=== PATIENT | female | born 1980 | race African-American/Black ===

== ENCOUNTER 2022-03-02 13:28 | Inpatient (IN) | payer MEDICAID, OTHER ==
[~2022-03-02] VITALS: Ht 170.2 cm; Wt 57.6 kg
[2022-03-02 13:38] VITALS: BP 145/99
[2022-03-02] MEDS ORDERED: KETOROLAC 30 MG/ML VIAL IM ONE (15:25)
[2022-03-02 16:43] LABS: BASOPHILS % (AUTO) 0.2 % (0.0-2.0); EOSINOPHILS # (AUTO) 0.1 K/uL (0-0.4); EOSINOPHILS % (AUTO) 0.7 % (0.0-4.0); HEMATOCRIT 38.3 % (36-48); HEMOGLOBIN 12.4 g/dL (12.0-16.0); LYMPHOCYTES # (AUTO) 1.3 K/uL (2.5-16.5); LYMPHOCYTES % (AUTO) 8.5 % (20.5-51.1); MEAN CORPUSCULAR HEMOGLOBIN 30 pg (27-31); MEAN CORPUSCULAR HGB CONC 32 g/dL (33-37); MEAN CORPUSCULAR VOLUME 92.7 fL (80-94); MONOCYTES % (AUTO) 6.6 % (1.7-9.3); NEUTROPHILS # (AUTO) 12.5 K/uL (1.8-7.7); PLATELET COUNT (AUTO) 248 K/uL (140-450); RED BLOOD CELL COUNT(AUTO) 4.13 MIL/uL (4.20-5.40); RED CELL DISTRIBUTION WIDTH 19.7 % (11.6-13.7); WHITE BLOOD COUNT (AUTO) 14.9 K/uL (4.8-10.8)
[2022-03-02 16:52] LABS: ALBUMIN 2.8 g/dL (3.4-5.0); ANION GAP 15.9 (8-16); ASPARTATE AMINOTRANSFERASE 108 U/L (15-37); CARBON DIOXIDE 25.8 mmol/L (21-32); CHLORIDE 99 mmol/L (98-107); CREATININE 0.8 mg/dL (0.6-1.3); GFR ARICAN-AMERICAN 101 mL/min (>90); GLUCOSE 155 mg/dL (74-106); LIPASE 879 U/L (73-393); SODIUM SERUM 138 mmol/L (136-145); TOTAL BILIRUBIN 0.4 mg/dL (0.0-1.0); UREA NITROGEN, BLOOD 7 mg/dL (7-18)
[2022-03-02 16:55] LABS: POTASSIUM 2.7 mmol/L (3.5-5.1)
--- NOTE | 2022-03-02 16:59 | NUR ---
PT AMBULATED TO ER BED 2
--- NOTE | 2022-03-02 17:25 | NUR ---
Mylene saucedo in [facility] - 03/02/22 at 1818 by NEELIMA PATIENT TO CT
[2022-03-02] MEDS ORDERED: POTASSIUM CHLORIDE 10 MEQ TABER PO ONE (17:50)
[2022-03-02] MEDS ORDERED: MORPHINE SULFATE 4 MG/ML SYR IVP ONE (17:50)
[2022-03-02] MEDS ORDERED: KCL 20 MEQ/WATER INJ PREMIX 200 ML IV PRN (17:50)
[2022-03-02] MEDS ORDERED: ONDANSETRON 4 MG/2 ML VIAL IVP PRN (17:50)
[2022-03-02] MEDS ORDERED: MAGNESIUM OXIDE 400 MG TAB PO PRN (17:50)
[2022-03-02] MEDS ORDERED: ACETAMINOPHEN 325 MG TAB PO PRN (17:50)
[2022-03-02] MEDS: NACL 0.9% 1,000 ML IV SCH (18:16)
--- NOTE | 2022-03-02 18:18 | NUR ---
LAB AT BEDSIDE. ADMIT ORDERS NOW TO TELE. PT ON BEDSIDE MONITOR
--- NOTE | 2022-03-02 18:42 | NUR ---
42YR OLD FEMALE BIB SELF. C/O ABD PAIN AND CP X1 DAY. PT PAIN LEVEL 7/10 DENIES SOB. STATES NAUSEA VOMITING AND DIARRHEA. PT STATES THIS IS THE SECOND OCCURANCE FROM A FEW MONTHS AGO. ADMITS TO DRINKING A PINT OF WHISKEY A DAY. PT IS BEING ADMITTED TO [facility] FOR PANCREATITIS. PT IS A&OX4 AND UP AT ZARI. NKDA NO MED HX
[2022-03-02] MEDS ORDERED: CALC500C17 PO (18:51)
--- NOTE | 2022-03-02 21:05 | NUR ---
PT RESTING IN BED. GAVE 2100 MEDS. PT ASKED FOR FOOD. INFORMED HER THAT SHE IS NPO. ALL NEEDS MEET AT THIS TIME.
[2022-03-02] MEDS: MORPHINE SULFATE 4 MG/ML SYR IVP PRN (23:17)
--- NOTE | 2022-03-02 23:20 | NUR ---
PT RESTING IN BED. GAVE MEDS FOR PAIN. ALL NEEDS MEET AT THIS TIME.
--- NOTE | 2022-03-03 03:18 | NUR ---
Patient will be admitted to care of DR. GAMBOA. Admited to [facility]. Will go to room 104 A. Belongings list completed. Report to VENANCIO VEGA.
[2022-03-03 04:02] VITALS: BP 134/88
--- NOTE | 2022-03-03 04:16 | NUR ---
42/F [facility] ED WITH CHIEF COMPLAINT OF ABD PAIN ASSOCIATED WITH N/V/D; DX IS ACUTE PANCREATITIS. A&OX4, VERBALLY RESPONSIVE AND ABLE TO COMMUNICATE NEEDS. VSS. HEAD TO TOE ASSESSMENT COMPLETED WITH CHARGE NURSE CONNIE. PER PT, ONSET OF CC STARTED ON 02/28/22 AND PT STATES SHE DID NOT TAKE ANYTHING TO ALLEVIATE THE PAIN. PER PT, SHE LOST ABOUT 10 LBS WITHIN 3 MONTHS WHICH STARTED OUT LOSS OF APPETITE WHICH LED TO EPISODES OF N/V/D ON 02/28/22. PT REPORTS TOLERABLE PAIN LEVEL OF 4/10. PT REPORTS HER LAST BM WAS YESTERDAY AROUND 2300 CONSISTENT WITH DIARRHEA. PT'S IV SITE TO THE RAC 20G IS PATENT/INTACT WITH NS INFUSING AT 80 ML/HR. SKIN IS INTACT. AMBULATORY AND CONTINENT OF VOID AND BM. PT IS CURRENTLY NPO EXCEPT MEDS PER MD ORDER. ORIENTED TO CALL LIGHT, BR, MEDICAL EQUIPMENT, BED CONTROL, VISITING HOURS, SMOKING POLICY, AND ID BRACELET ON. MRSA SWAB COLLECTED.
--- NOTE | 2022-03-03 04:52 | NUR ---
Patient's Plan of Care was discussed and reviewed with METEOROLOGY PROFESSOR: SILVIA TRUJILLO
--- NOTE | 2022-03-03 05:00 | NUR ---
ANSWERED CALL LIGHT. PT C/O 04/04 ABD PAIN. ENDORSED TO RN CONNIE FOR IVP PRN COVERAGE. RESPIRATIONS EVEN AND UNLABORED W NO APPARENT S/SX OF ACUTE DISTRESS. ALL NEEDS MET. COMMUNICATION BOARD UPDATED. ALL SAFETY MEASURES IN PLACE. CALL LIGHT WITHIN REACH. WILL CONTINUE TO MONITOR.
[2022-03-03] MEDS: MORPHINE SULFATE 4 MG/ML SYR IVP PRN ×3 (05:12→17:45)
[2022-03-03 06:13] LABS: BASOPHILS % (AUTO) 0.3 % (0.0-2.0); EOSINOPHILS # (AUTO) 0.3 K/uL (0-0.4); EOSINOPHILS % (AUTO) 2.9 % (0.0-4.0); HEMOGLOBIN 10.7 g/dL (12.0-16.0); LYMPHOCYTES # (AUTO) 2.3 K/uL (2.5-16.5); LYMPHOCYTES % (AUTO) 23.8 % (20.5-51.1); MEAN CORPUSCULAR HEMOGLOBIN 31 pg (27-31); MEAN CORPUSCULAR HGB CONC 33 g/dL (33-37); MEAN CORPUSCULAR VOLUME 92.4 fL (80-94); MONOCYTES # (AUTO) 0.9 K/uL (0.8-1.0); MONOCYTES % (AUTO) 9.5 % (1.7-9.3); NEUTROPHILS % (AUTO) 63.5 % (42.2-75.2); PLATELET COUNT (AUTO) 178 K/uL (140-450); RED BLOOD CELL COUNT(AUTO) 3.46 MIL/uL (4.20-5.40); RED CELL DISTRIBUTION WIDTH 20.4 % (11.6-13.7); WHITE BLOOD COUNT (AUTO) 9.5 K/uL (4.8-10.8)
[2022-03-03] MEDS: NACL 0.9% 1,000 ML IV SCH ×2 (06:38→19:35)
[2022-03-03 06:41] LABS: ALBUMIN 2.3 g/dL (3.4-5.0); CARBON DIOXIDE 24.1 mmol/L (21-32); CREATININE 0.6 mg/dL (0.6-1.3); POTASSIUM 3.1 mmol/L (3.5-5.1); TOTAL BILIRUBIN 0.7 mg/dL (0.0-1.0)
--- NOTE | 2022-03-03 07:00 | NUR ---
ENDORSED PT TO VENANCIO PAZ FOR CONTINUITY OF CARE. PT IS STABLE.
--- NOTE | 2022-03-03 07:01 | NUR ---
RECEIVED REPORT FROM DIE BARBER NURSE FOR CONTINUITY OF CARE. PT SLEEPING AT THIS TIME, AROUSABLE BY VERBAL STIMULI. A&O4, ABLE TO COMMUNICATE NEEDS. RESPIRATIONS EVEN AND UNLABORED ON ROOM AIR. SKIN IS INTACT, WARM AND DRY TO TOUCH, IV SITE AT LAC 20G INFUSING NS AT 80ML/HR. CALL LIGHT WITHIN REACH. SAFETY PRECAUTIONS IN PLACE. WILL CONTINUE TO MONITOR.
--- NOTE | 2022-03-03 07:01 | NUR ---
RECEIVED REPORT FROM KEYING MACHINE OPERATOR NURSE FOR CONTINUITY OF CARE. PT SLEEPING AT THIS TIME, AROUSABLE BY VERBAL STIMULI. A&O4, ABLE TO COMMUNICATE NEEDS. RESPIRATIONS EVEN AND UNLABORED ON ROOM AIR. SKIN IS INTACT, WARM AND DRY TO TOUCH, IV SITE AT RAC 20G INFUSING NS AT 80ML/HR. CALL LIGHT WITHIN REACH. SAFETY PRECAUTIONS IN PLACE. WILL CONTINUE TO MONITOR. Addendum: 03/03/22 at 0855 by Jeromy Givens LVN WRONG IV SITE
[2022-03-03 07:28] LABS: MAGNESIUM 0.6 mg/dL (1.8-2.4)
--- NOTE | 2022-03-03 07:29 | NUR ---
RECEIVED A CRITICAL FOR MG 0.6 FROM THE LAB. MADE AWARE.
--- NOTE | 2022-03-03 07:29 | NUR ---
RECEIVED A CRITICAL FOR MG 0.8 FROM THE LAB. MADE AWARE. Addendum: 03/03/22 at 0738 by Jeromy Givens LVN ERROR
[2022-03-03 08:00] VITALS: BP 122/81
[2022-03-03] MEDS: POTASSIUM CHLORIDE 10 MEQ TABER PO PRN (08:38)
[2022-03-03] MEDS: DOCUSATE SODIUM 100 MG GELCAP PO SCH (08:54)
--- NOTE | 2022-03-03 08:54 | NUR ---
ADMINISTERED SCHEDULED MORNING MEDS. NON ADMIT COLACE. PT STATED SHE HAD WATERY BOWEL MOVEMENT YESTERDAY. POTASSIUM 3.1, PRN KCL GIVEN. MG 0.6, RN WILL ADMINISTER IV MG. PT COMPLAINING OF ABD PAIN. OFFERED PAIN MED, PT STATED SHE CAN STILL TOLERATE IT. PT TEACHING ABOUT MEDS GIVEN. PT VERBALIZED UNDERSTANDING. WILL CONTINUE TO MONITOR.
--- NOTE | 2022-03-03 09:15 | NUR ---
ENDORSED PT TO SUPERVISOR COLD ROLLING NURSE FOR CONTINUITY OF CARE. ALL NEEDS MET THROUGHOUT SHIFT. PT IS STABLE. Addendum: 03/03/22 at 1936 by Jeromy Givens LVN ERROR
[2022-03-03] MEDS: MAG SULF 2000 MG/WATER PREMIX 50 ML IV PRN (10:18)
--- NOTE | 2022-03-03 11:25 | NUR ---
PT COMPLAINED OF ABD PAIN 04/04. PRN PAIN MED ADMINISTERED BY RAYSA YOUSIF.
--- NOTE | 2022-03-03 13:30 | NUR ---
DR GAMBOA AT BEDSIDE, DISCUSSED WITH PT POC.
--- NOTE | 2022-03-03 15:00 | NUR ---
MD ORDERED TO CHANGE DIET TO CLEAR LIQUID DIET. PT TOLERATED WELL.
[2022-03-03 16:30] VITALS: BP 148/89
--- NOTE | 2022-03-03 17:45 | NUR ---
PT COMPLAINED OF STOMACH PAIN 9/10, NAUSEA AND VOMITING. PRN MEDS GIVEN BY RN.
--- NOTE | 2022-03-03 19:15 | NUR ---
ENDORSED PT TO ASPHALT COATER NURSE FOR CONTINUITY OF CARE. ALL NEEDS MET THROUGHOUT SHIFT. PT IS STABLE.
--- NOTE | 2022-03-03 19:16 | NUR ---
RECEIVED ENDORSEMENT FROM VENANCIO PAZ FOR CONTINUITY OF CARE. PT IS AWAKE AND STABLE. A&OX4. VERBALLY RESPONSIVE AND ABLE TO COMMUNICATE NEEDS. ON ROOM AIR W NO APPARENT S/SX OF ACUTE DISTRESS. RESPIRATIONS EVEN AND UNLABORED. REPORTS TOLERABLE PAIN LEVEL OF 2/10. IV SITE TO LAC 20G INTACT/PATENT W NS INFUSING AT 80 ML/HR. CONTINENT OF VOID AND BM. PLAN OF CARE AND COMMUNICATION BOARD UPDATED. ALL SAFETY MEASURES IN PLACE. BED IN LOW/LOCKED POSITION. CALL LIGHT WITHIN REACH. WILL CONTINUE TO MONITOR.
[2022-03-03 20:00] VITALS: BP 135/90
--- NOTE | 2022-03-03 20:00 | NUR ---
Patient's Plan of Care was discussed and reviewed with VENANCIO: SILVIA
[2022-03-03] MEDS: HYDROcodone/APAP 5/325 MG 1 TAB TAB PO PRN (20:10)
--- NOTE | 2022-03-03 21:00 | NUR ---
PT REFUSED HEPARIN SODIUM. PT EXPLAINED THAT SHE ALREADY TOOK THIS MORNING. EXPLAINED TO PT MD ORDERED BID. EXPLAINED TO PT RISKS OF REFUSING MEDICATION. PT VERBALIZED UNDERSTANDING. WILL MONITOR FOR ADVERSE EFFECTS. RESPIRATIONS EVEN AND UNLABORED W NO APPARENT S/SX OF ACUTE DISTRESS. COMMUNICATION BOARD UPDATED. ALL SAFETY MEASURES IN PLACE. CALL LIGHT WITHIN REACH. WILL CONTINUE TO MONITOR.
--- NOTE | 2022-03-03 23:00 | NUR ---
PT'S IV SITE LEAKING. REINSERTED 24G IN RFA. TOLERATED WELL. NADR. DENIES PAIN/N/V AT THIS TIME. RESPIRATIONS EVEN AND UNLABORED W NO APPARENT S/SX OF ACUTE DISTRESS. COMMUNICATION BOARD UPDATED. ALL SAFETY MEASURES IN PLACE. CALL LIGHT WITHIN REACH. WILL CONTINUE TO MONITOR.
--- NOTE | 2022-03-04 01:00 | NUR ---
PT IS STABLE AND ASLEEP IN LEFT SIDE-LYING POSITION. CHEST IS RISING AND FALLING EVENLY. RESPIRATIONS EVEN AND UNLABORED W NO APPARENT S/SX OF ACUTE DISTRESS. COMMUNICATION BOARD UPDATED. ALL SAFETY MEASURES IN PLACE. CALL LIGHT WITHIN REACH. WILL CONTINUE TO MONITOR.
--- NOTE | 2022-03-04 03:00 | NUR ---
PT C/O LOWER ABD 7/10 PAIN. BP 148/78 HR 88. WILL ENDORSE TO RAYSA [place] FOR IVP PRN COVERAGE. RESPIRATIONS EVEN AND UNLABORED W NO APPARENT S/SX OF ACUTE DISTRESS. COMMUNICATION BOARD UPDATED. ALL SAFETY MEASURES IN PLACE. CALL LIGHT WITHIN REACH. WILL CONTINUE TO MONITOR.
[2022-03-04] MEDS: MORPHINE SULFATE 4 MG/ML SYR IVP PRN ×3 (03:03→18:34)
[2022-03-04 04:00] VITALS: BP 121/95
--- NOTE | 2022-03-04 05:00 | NUR ---
PT REPORTS TOLERABLE ABD PAIN LEVEL 2/10 LONG SHE DOESN'T MOVE. DENIES ANY EPISODES OF N/V. RESPIRATIONS EVEN AND UNLABORED W NO APPARENT S/SX OF ACUTE DISTRESS. ALL NEEDS MET AT THIS TIME. COMMUNICATION BOARD UPDATED. ALL SAFETY MEASURES IN PLACE. CALL LIGHT WITHIN REACH. WILL CONTINUE MONITOR.
--- NOTE | 2022-03-04 07:00 | NUR ---
ENDORSED PT TO RAYSA JOHNSTON FOR CONTINUITY OF CARE. PT IS STABLE.
--- NOTE | 2022-03-04 07:15 | NUR ---
RECEIVED REPORT FROM HEAD GAUGE UNIT OPERATOR NURSE: PATIENT RECEIVED ASLEEP AND BREATHING EFFORTLESSLY ON ROOM. IVF NS INFUSING VIA RIGHT FOREARM SITE WITH 24 G CATH, AT 8O ML/HOUR. WILL CONTINUE PLAN OF CARE AND MAINTAIN SAFETY.
[2022-03-04] MEDS: NACL 0.9% 1,000 ML IV SCH ×2 (07:20→19:50)
--- NOTE | 2022-03-04 07:20 | NUR ---
RECEIVED REPORT FROM OCEAN EXPORT COORDINATOR NURSE: PATIENT RECEIVED ASLEEP AND BREATHING EFFORTLESSLY ON ROOM. IVF NS INFUSING VIA RIGHT FEMORAL 3-LUMEN CENTRAL LINE, AT 8O ML/HOUR. HEREDIA CATHETER, 16 FR, IN PLACE AND DRAINING SCANT AMOUNT OF DARK CASS URINE. WILL CONTINUE PLAN OF CARE AND MAINTAIN SAFETY. Addendum: 03/04/22 at 0806 by Susy Moreno RN NOTE WRITTEN ON WRONG PATIENT.
[2022-03-04 07:24] LABS: BASOPHILS % (AUTO) 0.3 % (0.0-2.0); EOSINOPHILS # (AUTO) 0.3 K/uL (0-0.4); EOSINOPHILS % (AUTO) 2.6 % (0.0-4.0); HEMATOCRIT 30.3 % (36-48); HEMOGLOBIN 10.1 g/dL (12.0-16.0); LYMPHOCYTES # (AUTO) 1.3 K/uL (2.5-16.5); MEAN CORPUSCULAR HEMOGLOBIN 31 pg (27-31); MEAN CORPUSCULAR HGB CONC 33 g/dL (33-37); MEAN CORPUSCULAR VOLUME 93.1 fL (80-94); MONOCYTES # (AUTO) 0.8 K/uL (0.8-1.0); MONOCYTES % (AUTO) 8.4 % (1.7-9.3); NEUTROPHILS # (AUTO) 7.1 K/uL (1.8-7.7); NEUTROPHILS % (AUTO) 74.7 % (42.2-75.2); PLATELET COUNT (AUTO) 155 K/uL (140-450); RED BLOOD CELL COUNT(AUTO) 3.25 MIL/uL (4.20-5.40); WHITE BLOOD COUNT (AUTO) 9.6 K/uL (4.8-10.8)
[2022-03-04 07:55] LABS: ALBUMIN 2.1 g/dL (3.4-5.0); ANION GAP 12.6 (8-16); CARBON DIOXIDE 22.8 mmol/L (21-32); CREATININE 0.5 mg/dL (0.6-1.3); MAGNESIUM 1.2 mg/dL (1.8-2.4); POTASSIUM 3.4 mmol/L (3.5-5.1); TOTAL BILIRUBIN 0.6 mg/dL (0.0-1.0)
--- NOTE | 2022-03-04 08:23 | NUR ---
PATIENT HAS BEEN SCREENED AND CATEGORIZED HIGH NUTRITION RISK. PATIENT WILL BE SEEN WITHIN 1-2 DAYS OF ADMISSION. 03/03/22-03/04/[address] REFERRAL RECEIVED FOR VOMITING OVER 3 DAYS.
[2022-03-04] MEDS: DOCUSATE SODIUM 100 MG GELCAP PO SCH (09:00)
--- NOTE | 2022-03-04 09:52 | NUR ---
PATIENT AWAKE, ALERT, AND ORIENTED X 4, STILL EATING BREAKFAST. REFUSED COLACE, ORDERED, STATING HAD BM YESTERDAY & SAME WAS STILL WATERY. REPORTED ABDOMINAL PAIN OF 3/10 BUT STATED DID NOT WANT MED FOR PAIN, "WILL WAIT AND SEE." WILL CONTINUE TO MONITOR.
--- NOTE | 2022-03-04 11:25 | NUR ---
PATIENT REPORTS PAIN RELIEF--RATES PAIN 1/10 AND "GETTING BETTER."
[2022-03-04] MEDS: POTASSIUM CHLORIDE 10 MEQ TABER PO PRN (11:30)
[2022-03-04] MEDS: MAG SULF 2000 MG/WATER PREMIX 50 ML IV PRN (11:31)
--- NOTE | 2022-03-04 11:35 | NUR ---
PATIENT REPORTS PAIN OF 04/04--MORPHINE SULFATE ADMIN ORDERED AT 1130, AND WILL CONTINUE TO MONITOR PATIENT. POTASSIUM LEVEL IS 3.4 TODAY--K-DUR ADMIN ORDERED FOR LEVEL BETWEEN 3.1 - 3.5. MAGNESIUM LEVEL 1.2 TODAY--MAGNESIUM SULFATE ADMIN IV ORDERED FOR LEVEL LOWER THAN 1.5.
--- NOTE | 2022-03-04 15:33 | NUR ---
03/04/2022 RD INITIAL ASSESSMENT COMPLETED PLEASE REFER TO NUTRITION ASSESSMENT UNDER CARE ACTIVITY FOR ESTIMATED NUTRITIONAL NEEDS. 1.WHEN/IF MEDICALLY APPROPRIATE, RECOMMEND ADVANCING DIET TO FULL LIQUID DIET PT TOLERATES. 2.RECOMMEND ENSURE CLEAR TO OPTIMIZE NUTRITION. 3.MONITOR PO INTAKE 4.RD TO FOLLOW-UP IN 2-3 DAYS PATIENT IS HIGH RISK. [address]
[2022-03-04 16:00] VITALS: BP 124/74
--- NOTE | 2022-03-04 18:35 | NUR ---
PATIENT REPORTED PAIN OF 8/10. MORPHINE SULFATE ADMIN ORDERED. PATIENT DENIED NAUSEA. ABOUT TO EAT DINNER SERVED.
--- NOTE | 2022-03-04 19:09 | NUR ---
PATIENT EATING AND TOLERATING CLEAR LIQUIDS. PLAN OF CARE CONTINUED AND SAFETY MAINTAINED. VERBALIZES SOME PAIN RELIEF SINCE PAIN SPECIAL DELIVERY MAIL CARRIER--REPORTS PAIN IS NOW 2/10. WILL BE ENDORSED TO SAND BOBBER NURSE.
--- NOTE | 2022-03-04 19:25 | NUR ---
PATIENT REPORTED PAIN LEVEL OF 2/10 AND STATES IT IS TOLERABLE. CARE PLAN CONTINUED AND SAFETY MAINTAINED. ENDORSED PATIENT TO FUNERAL ATTENDANT NURSE.
--- NOTE | 2022-03-04 19:26 | NUR ---
RECEIVED PT FROM AM NURSE FOR CONTINUITY OF CARE. PT IS STABLE
--- NOTE | 2022-03-04 21:30 | NUR ---
ALL MEDICATIONS GIVEN,NO ADVERSE REACTIONS NOTED
--- NOTE | 2022-03-05 01:00 | NUR ---
PATIENT ASLEEP ,BREATHING EVEN AND UNLABORED,NO DISTRESS NOTED
[2022-03-05] MEDS: MORPHINE SULFATE 4 MG/ML SYR IVP PRN (01:13)
--- NOTE | 2022-03-05 03:00 | NUR ---
PATIENT ASLEEP,RESPIRATIONS EVEN AND UNLABORED,NO DISTRESS NOTED
[2022-03-05 04:00] VITALS: BP 116/71
--- NOTE | 2022-03-05 06:00 | NUR ---
PATIENT IS AWAKE, NO COMPLAIN OF PAIN AT THIS TIME,NO DISTRESS NOTED
--- NOTE | 2022-03-05 07:05 | NUR ---
RECEIVED REPORT FROM BAND AND CUFF CUTTER NURSE FOR CONTINUITY OF CARE. PATIENT ASLEEP NO DISTRESS NOTED. RESPIRATION EVEN AND NOT LABORED ON ROOM AIR. IV SITE ON RIGHT FORE ARM LUCIE 24 RUNNING AT 80 CC/HOUR. ALL SAFETY MEASURE IN PLACE.
[2022-03-05 07:15] LABS: ALBUMIN 1.8 g/dL (3.4-5.0); ANION GAP 10.9 (8-16); CARBON DIOXIDE 22.6 mmol/L (21-32); CREATININE 0.4 mg/dL (0.6-1.3); MAGNESIUM 1.5 mg/dL (1.8-2.4); POTASSIUM 3.5 mmol/L (3.5-5.1); TOTAL BILIRUBIN 0.5 mg/dL (0.0-1.0)
[2022-03-05 07:25] LABS: BASOPHILS % (AUTO) 0.1 % (0.0-2.0); EOSINOPHILS # (AUTO) 0.3 K/uL (0-0.4); EOSINOPHILS % (AUTO) 3.2 % (0.0-4.0); HEMATOCRIT 27.8 % (36-48); HEMOGLOBIN 9.3 g/dL (12.0-16.0); LYMPHOCYTES # (AUTO) 1.8 K/uL (2.5-16.5); LYMPHOCYTES % (AUTO) 21.5 % (20.5-51.1); MEAN CORPUSCULAR HEMOGLOBIN 31 pg (27-31); MEAN CORPUSCULAR HGB CONC 33 g/dL (33-37); MEAN CORPUSCULAR VOLUME 93.1 fL (80-94); MONOCYTES # (AUTO) 0.9 K/uL (0.8-1.0); MONOCYTES % (AUTO) 10.7 % (1.7-9.3); NEUTROPHILS # (AUTO) 5.2 K/uL (1.8-7.7); NEUTROPHILS % (AUTO) 64.5 % (42.2-75.2); PLATELET COUNT (AUTO) 145 K/uL (140-450); RED BLOOD CELL COUNT(AUTO) 2.98 MIL/uL (4.20-5.40); RED CELL DISTRIBUTION WIDTH 20.6 % (11.6-13.7); WHITE BLOOD COUNT (AUTO) 8.1 K/uL (4.8-10.8)
--- NOTE | 2022-03-05 07:35 | NUR ---
ENDORSED PT TO AM NURSE FOR CONTINUITY OF CARE.PT IS STABLE
--- NOTE | 2022-03-05 08:00 | NUR ---
Patient's Plan of Care was discussed and reviewed with VENANCIO Mitchell
[2022-03-05] MEDS: DOCUSATE SODIUM 100 MG GELCAP PO SCH ×3 (09:00→09:34)
[2022-03-05] MEDS: HYDROcodone/APAP 5/325 MG 1 TAB TAB PO PRN ×2 (09:24→17:49)
--- NOTE | 2022-03-05 11:04 | NUR ---
INFORM DR. AARON IF WE CAN CHANGE PATIENT DIET TO REGULAR PER PATIENT REQUEST AND HE SAID YES ORDER NOTED AND CARRIED OUT.
[2022-03-05] MEDS: NACL 0.9% 1,000 ML IV SCH ×2 (11:30→11:50)
[2022-03-05] MEDS: MAG SULF 2000 MG/WATER PREMIX 50 ML IV PRN (11:46)
--- NOTE | 2022-03-05 13:30 | NUR ---
PATIENT EAT LUNCH BUT ONLY ATE SMALL AMOUNT. PATIENT ON STABLE CONDITION.
[2022-03-05 14:49] VITALS: BP 111/66
--- NOTE | 2022-03-05 15:50 | NUR ---
DC PLANN[age] YRS OLD FEMALE PATIENT WAS ADMITTED FROM HOME WITH A DX OF ACUTE PANCREATITIS. PATIENT HAS NO MEDICAL HISTORY. CHEST XRAY NORMAL , CT ABD SHOWED PANCREATITIS. RAPID COVID TEST NEGATIVE. LIPASE LEVEL [phone],[phone] AND 873. ADMINISTERED IVF, ZOFRAN AND PAIN MEDS. DC PLAN TO GO HOME WHEN STABLE CM TO FOLLOW. Addendum: 03/07/22 at 1221 by Ondina Patrick RN DC PLANNING: LIPASE LEVEL 2056 CONTINUE IVF STILL ON REGULAR DIET. DC PLAN TO GO HOME WHEN STABLE. CM TO FOLLOW
--- NOTE | 2022-03-05 17:50 | NUR ---
COMPLAIN OF ABDOMINAL AND BACK PAIN MEDICATED ORDER.
--- NOTE | 2022-03-05 18:00 | NUR ---
PATIENT IS COMPLAINING THAT SHE HAD [address] ADKINS AND HE ORDER IMODIUM.
[2022-03-05] MEDS ORDERED: LOPERAMIDE 2 MG CAP PO PRN (18:10)
--- NOTE | 2022-03-05 19:26 | NUR ---
Gave report to warehouse worker 2nd shift nurse for continuity of care. Patient awake no distress at this time.
--- NOTE | 2022-03-05 19:27 | NUR ---
RECEIVED REPORT FROM JOE CRAFT, PATIENT WAS STABLE AT CHANGE OF SHIFT. PATIENT WAS RECEIVED IN BED ALERT AND ORIENTED X 4 WITH HOB ELEVATED AT 45 DEGREES TO WATCH TV AND COMFORT. PATIENT HAS SIDE RAILS UP X 2. BED AT THE LOWEST LEVEL FOR SAFETY. CALL LIGHT WITHIN REACH FOR ASSISTANCE AND NEEDS. AT THIS TIME PATIENT HAS NO NOTED PAIN/DISCOMFORT. PATIENT HAS NO NOTED RESPIRATORY COMPLAINTS OR NEEDS. PATIENT IS ON ROOM AIR. [email or web address]
--- NOTE | 2022-03-05 20:00 | NUR ---
Patient's Plan of Care was discussed and reviewed with VENANCIO DE SOUZA.
--- NOTE | 2022-03-05 21:38 | NUR ---
PATIENT NOTED IN BED WATCHING TV. NO NOTED S/SX OF PAIN/DISCOMFORT. NO NOTD RESPIRATORY PAIN/DISCOMFORT. CALL LIGHT WITHIN REACH. [email or web address]
--- NOTE | 2022-03-05 23:40 | NUR ---
PATIENT NOTED IN BED ASLEEP ATH THIS TIME. HAS SIDE RAILS UP X 2. BED AT THE LOWEST LEVEL FOR SAFETY AND ADJUSTMENTS FOR COMFORT. CALL LIGHT WITHIN REACH FOR ASSISTANCE AND NEEDS. AT THIS TIME PATIENT HAS NO NOTED PAIN/DISCOMFORT. PATIENT HAS NO NOTED RESPIRATORY COMPLAINTS OR NEEDS. PATIENT IS ON ROOM AIR. [email or web address]
[2022-03-06] MEDS: HYDROcodone/APAP 5/325 MG 1 TAB TAB PO PRN (00:25)
--- NOTE | 2022-03-06 00:35 | NUR ---
PATIENT CALL FOR PAIN PRN. BLOOD PRESSURE WAS NOTED AT 119/77 AND HR 95. PATIENT WAS ENCOURAGED TO SEE HOW THIS WORKS OUT THEN RECHECK IN ONE HOUR. PATIENT UNDERSTOOD AND AGREED. NURSING WILL RECHECK IN ONE HOUR. SIDE RAILS UP X 2. CALL LIGHT IN REACH FOR ASSISTANCE AND NEEDS. NO NOTED RESPRIATORY PAIN/DISCOMFORT AT THIS TIME. [email or web address]
--- NOTE | 2022-03-06 01:50 | NUR ---
DURING ROUNDS NURSING NOTED THE PATIENT IN BED ASLEEP. COVERING RN WAS ABLE TO GIVE IV ANTIBIOTICS. NO SIDE EFFECTS NOTED FROM THE MEDICATION. SIDE RAILS UP X 2. CALL LIGHT IN REACH FOR ASSISTANCE. [email or web address]
[2022-03-06] MEDS: NACL 0.9% 1,000 ML IV SCH ×2 (03:33→21:50)
--- NOTE | 2022-03-06 03:45 | NUR ---
NURSING NOTED THE PATIENT IN BED AWAKE. PATIENT STATED SHE CANNOT SLEEP. NURSING OFFERED TO CLOSE THE DOOR AND PULL SCREEN. PATIENT DECLINED. COVERING RN WAS ABLE TO GIVE IV ANTIBIOTICS. NO SIDE EFFECTS NOTED FROM THE MEDICATION. SIDE RAILS UP X 2. CALL LIGHT IN REACH FOR ASSISTANCE. [email or web address]
[2022-03-06 04:00] VITALS: BP 108/65
--- NOTE | 2022-03-06 05:58 | NUR ---
NURSING NOTED THE PATIENT IN BED AWAKE. NO NOTED SIDE EFFECTS NOTED FROM THE MEDICATION. SIDE RAILS UP X 2. CALL LIGHT IN REACH FOR ASSISTANCE. NO S/S OF PAIN/DISCOMFORT. NO S/S OF RESPIRATORY DISTRESS. [email or web address]
--- NOTE | 2022-03-06 07:08 | NUR ---
ENDORSED TO TOMEKAFernando FASHION BUYING INTERNSHIP, PATIENT WAS STABLE DURING SHIFT CHANGE. [email or web address]
--- NOTE | 2022-03-06 07:09 | NUR ---
RECEIVED REPORT FROM GROOVER OPERATOR NURSE FOR CONTINUITY OF CARE. PT IS AWAKE IN BED. RESPIRATIONS EVEN AND UNLABORED ON ROOM AIR. NO DISTRESS NOTED. SKIN IS INTACT, WARM AND DRY TO TOUCH. IV SITE AT RFA 22G INFUSING NS AT 80ML/HR. CALL LIGHT WITHIN REACH. SAFETY PRECAUTIONS IN PLACE. WILL CONTINUE TO MONITOR.
[2022-03-06 07:24] LABS: BASOPHILS % (AUTO) 0.2 % (0.0-2.0); EOSINOPHILS # (AUTO) 0.3 K/uL (0-0.4); EOSINOPHILS % (AUTO) 3.3 % (0.0-4.0); LYMPHOCYTES # (AUTO) 1.9 K/uL (2.5-16.5); LYMPHOCYTES % (AUTO) 24.3 % (20.5-51.1); MEAN CORPUSCULAR HEMOGLOBIN 31 pg (27-31); MEAN CORPUSCULAR HGB CONC 33 g/dL (33-37); MEAN CORPUSCULAR VOLUME 93.3 fL (80-94); MONOCYTES # (AUTO) 0.9 K/uL (0.8-1.0); MONOCYTES % (AUTO) 11.5 % (1.7-9.3); NEUTROPHILS # (AUTO) 4.6 K/uL (1.8-7.7); NEUTROPHILS % (AUTO) 60.7 % (42.2-75.2); PLATELET COUNT (AUTO) 152 K/uL (140-450); RED BLOOD CELL COUNT(AUTO) 2.89 MIL/uL (4.20-5.40); RED CELL DISTRIBUTION WIDTH 21.1 % (11.6-13.7); WHITE BLOOD COUNT (AUTO) 7.6 K/uL (4.8-10.8)
[2022-03-06 07:32] LABS: ALBUMIN 1.8 g/dL (3.4-5.0); ANION GAP 12.3 (8-16); CARBON DIOXIDE 21.8 mmol/L (21-32); CREATININE 0.4 mg/dL (0.6-1.3); MAGNESIUM 1.6 mg/dL (1.8-2.4); POTASSIUM 3.1 mmol/L (3.5-5.1); TOTAL BILIRUBIN 0.3 mg/dL (0.0-1.0)
[2022-03-06 08:00] VITALS: BP 123/75
--- NOTE | 2022-03-06 08:00 | NUR ---
Patient's Plan of Care was discussed and reviewed with VENANCIO: JACKSON
[2022-03-06] MEDS: POTASSIUM CHLORIDE 10 MEQ TABER PO PRN (08:59)
[2022-03-06] MEDS: DOCUSATE SODIUM 100 MG GELCAP PO SCH (09:00)
--- NOTE | 2022-03-06 09:09 | NUR ---
ADMINISTERED SCHEDULED MORNING MEDS. K-3.1, MG-1.6, ADMINISTERED PRN MEDS. PT REFUSED COLACE. PT STATED HER DIARRHEA JUST STOPPED NOW. SHE DOESN'T NEED COLACE RIGHT NOW. PT TEACHING ABOUT MEDS GIVEN. PT VERBALIZED UNDERSTANDING. WILL CONTINUE TO MONITOR.
[2022-03-06] MEDS: MORPHINE SULFATE 4 MG/ML SYR IVP PRN (10:31)
--- NOTE | 2022-03-06 10:31 | NUR ---
PT COMPLAINED OF PAIN 8/10 ON HER ABDOMEN. PRN PAIN MED ADMINISTERED BY RAYSA BURTON.
--- NOTE | 2022-03-06 13:15 | NUR ---
PT REQUESTED FOR TURKEY SANDWICH FOR LUNCH. PT ATE THE WHOLE SANDWICH. NO VOMITING, NO STOMACH PAIN. PT TOLERATED WELL.
[2022-03-06 16:00] VITALS: BP 123/82
--- NOTE | 2022-03-06 16:40 | NUR ---
DID ROUNDS. PT IN BED, USING HER CP. RESPIRATIONS EVEN AND UNLABORED. NO DISTRESS NOTED. CALL LIGHT WITHIN REACH. SAFETY PRECAUTIONS IN PLACE. WILL CONTINUE TO MONITOR.
--- NOTE | 2022-03-06 19:15 | NUR ---
ENDORSED PT TO CLOTH MENDER NURSE FOR CONTINUITY OF CARE. ALL NEEDS MET THROUGHOUT SHIFT. PT IS STABLE.
--- NOTE | 2022-03-06 19:16 | NUR ---
RECEIVED PATIENT IN BED ALERT AND ORIENTED WATCHING TV. PATIENT WAS ABLE TO TELL NURSING OF ANY PAIN/DISCOMFORTS. NO AT THIS TIME. PATIENT IS ON ROOM AIR. CLEAR LUNGS NO STRUGGLES TO BREATH AT THIS TIME. PATIENT HAS SIDE RAILS UP X 2. CALL LIGHT WITHIN REACH FOR ASSISTANCE. PATIENT KEEP AND DRY. NURSING OBSERVED PATIENT BRUSHING HER TEETH WITHOUT PROBLEMS. BED NOTED AT THE LOWEST LEVEL. NURSING WILL CONTINUE TO MONITOR AND ANTICIPATED FOR NEEDS. [email or web address]
[2022-03-06 20:00] VITALS: BP 120/75
--- NOTE | 2022-03-06 20:00 | NUR ---
Patient's Plan of Care was discussed and reviewed with VENANCIO DE SOUZA.
[2022-03-06] MEDS ORDERED: TEMAZEPAM 15 MG CAP PO PRN (23:35)
--- NOTE | 2022-03-07 00:04 | NUR ---
PATIENT WAS GIVEN SLEEP MEDICATION. NURSING WILL MONITOR SIDE EFFECT AND EFFECTIVENESS OF THE MEDICATION. SIDE RAILS UP X 2. CALL LIGHT WITHIN REACH FO ASSISTANCE. PATIENT WAS GIVEN EDUCATION ON MEDICATION PURPOSE. NURSING WILL MAKE ROUNDS. [email or web address]
--- NOTE | 2022-03-07 02:18 | NUR ---
DURING ROUNDS PATIENT WAS NOTED IN BED ASLEEP. NO NOTED SIDE EFFECTS FROM THE MEDICATION. BREATHING NOTED EVEN AND UNLABORED. NO S/S OF PAIN/DISCOMFORT. [email or web address]
--- NOTE | 2022-03-07 02:43 | NUR ---
PATIENT REMAINS ASLEEP AT THIS TIME. SIDE RAILS UP X 2. CALL LIGHT WITHIN REACH FOR ASSISTANCE. NURSING WILL MAKE ROUNDS TO ANTICIPATE NEEDS OR ASSISTANCE. [email or web address]
[2022-03-07 04:00] VITALS: BP 121/58
--- NOTE | 2022-03-07 05:36 | NUR ---
DURING ROUNDS NURSING NOTED PATIENT REMAINS ASLEEP AT THIS TIME. SIDE RAILS UP X 2. CALL LIGHT WITHIN REACH FOR ASSISTANCE. NURSING WILL MAKE ROUNDS TO ANTICIPATE NEEDS OR ASSISTANCE. [email or web address]
--- NOTE | 2022-03-07 07:02 | NUR ---
RECEIVED REPORT FROM HAND BUTTON SPLITTER NURSE FOR CONTINUITY OF CARE. PT IS AWAKE IN BED. A&O4, ABLE TO COMMUNICATE NEEDS. RESPIRATIONS EVEN AND UNLABORED ON ROOM AIR. NO DISTRESS NOTED. SKIN IS INTACT, WARM AND DRY TO TOUCH. IV SITE AT RFA 24G INFUSING NS AT 80ML/HR. CALL LIGHT WITHIN REACH. SAFETY PRECAUTIONS IN PLACE. WILL CONTINUE TO MONITOR.
[2022-03-07 07:23] LABS: BASOPHILS % (AUTO) 0.3 % (0.0-2.0); EOSINOPHILS # (AUTO) 0.3 K/uL (0-0.4); EOSINOPHILS % (AUTO) 3.2 % (0.0-4.0); HEMATOCRIT 27.6 % (36-48); HEMOGLOBIN 9.2 g/dL (12.0-16.0); LYMPHOCYTES # (AUTO) 2.2 K/uL (2.5-16.5); LYMPHOCYTES % (AUTO) 24.2 % (20.5-51.1); MEAN CORPUSCULAR HEMOGLOBIN 31 pg (27-31); MEAN CORPUSCULAR HGB CONC 33 g/dL (33-37); MEAN CORPUSCULAR VOLUME 92.9 fL (80-94); MONOCYTES # (AUTO) 1.4 K/uL (0.8-1.0); MONOCYTES % (AUTO) 14.8 % (1.7-9.3); NEUTROPHILS # (AUTO) 5.3 K/uL (1.8-7.7); NEUTROPHILS % (AUTO) 57.5 % (42.2-75.2); PLATELET COUNT (AUTO) 187 K/uL (140-450); RED BLOOD CELL COUNT(AUTO) 2.97 MIL/uL (4.20-5.40); RED CELL DISTRIBUTION WIDTH 21.1 % (11.6-13.7); WHITE BLOOD COUNT (AUTO) 9.1 K/uL (4.8-10.8)
--- NOTE | 2022-03-07 07:35 | NUR ---
PATIENT WAS ENDORSED TO [facility] ANESTHESIOLOGY TEACHER, PATIENT WAS STABLE AT CHANGE OF SHIFT. [email or web address]
[2022-03-07 07:49] LABS: ALBUMIN 1.8 g/dL (3.4-5.0); ANION GAP 12.5 (8-16); CARBON DIOXIDE 21.5 mmol/L (21-32); CREATININE 0.4 mg/dL (0.6-1.3); MAGNESIUM 1.4 mg/dL (1.8-2.4); TOTAL BILIRUBIN 0.1 mg/dL (0.0-1.0)
[2022-03-07 08:00] VITALS: BP 121/68
[2022-03-07] MEDS: DOCUSATE SODIUM 100 MG GELCAP PO SCH (08:46)
--- NOTE | 2022-03-07 08:58 | NUR ---
ADMINISTERED SCHEDULED MORNING MEDS. PT TEACHING ABOUT MEDS GIVEN. PT VERBALIZED UNDERSTANDING.
[2022-03-07] MEDS: MAG SULF 2000 MG/WATER PREMIX 50 ML IV PRN (09:54)
--- NOTE | 2022-03-07 09:55 | NUR ---
MAGNESIUM PRN GIVEN FOR MG 1.4. WILL CONTINUE TO MONITOR.
[2022-03-07] MEDS: NACL 0.9% 1,000 ML IV SCH (10:20)
--- NOTE | 2022-03-07 12:35 | NUR ---
IV LINE CLOGGED. RN ATTEMPTED TO PLACE A NEW ONE. NEW IV LINE AT LEFT WRIST 24G. MG 1.4. RN JESSE ADMINISTERED IV MG. PT TOLERATED WELL.
--- NOTE | 2022-03-07 14:48 | NUR ---
03/07/22 RD FOLLOW UP COMPLETED PLEASE REFER TO NUTRITION ASSESSMENT UNDER CARE ACTIVITY FOR ESTIMATED NUTRITIONAL NEEDS. 1. CONTINUE REGULAR DIET TOLERATED 2. RECOMMENDED ENSURE CLEAR BID FOR NUTRITION SUPPORT 3. PROVIDED NUTRITION EDUCATION FOR PANCREATITIS WITH HANDOUTS -RECOMMENDED LOW-FAT FOODS 4. RD TO FOLLOW-UP IN 7 DAYS; LOW RISK ZITA CUI RD
--- NOTE | 2022-03-07 15:23 | NUR ---
IV LINE INFILTRATED. PT WAS COMPLAINING OF PAIN, IV SITE SWOLLEN. DR ADKINS, ORDERED MG OX PO.
[2022-03-07 16:00] VITALS: BP 125/83
[2022-03-07] MEDS ORDERED: MAGNESIUM OXIDE 400 MG TAB PO SCH (16:00)
[2022-03-07] MEDS ORDERED: ONDA-188 SL (17:19)
[2022-03-07] MEDS ORDERED: PANT40EC PO (17:19)
[2022-03-07] MEDS ORDERED: MAGN400T61 PO (17:19)
[2022-03-07] MEDS ORDERED: ACET-9525 PO (17:19)
[2022-03-07] MEDS ORDERED: DOCU-299 PO (17:21)
--- NOTE | 2022-03-07 17:56 | NUR ---
INFORMED PT ABOUT THE DC ORDER. PT VERBALIZED UNDERSTANDING. PT STATED SHE'LL BE PICKED BY HER MOTHER IN LAW WHO LIVES NEAR THE HOSPITAL.
[2022-03-07 17:58] VITALS: BP 127/64
--- NOTE | 2022-03-07 18:50 | NUR ---
DC PAPERS DISCUSSED WITH THE PT. PT PRESCRIPTIONS GIVEN. VERIFIED PHARMACY. PT VERBALIZED UNDERSTANDING. ID WRIST BAND REMOVED. ALL BELONGINGS TAKEN UPON DC. NURSE WALKED PT OUT TO THE LOBBY, FAMILY MEMBER AWAITING OUTSIDE. PT DC HOME. PT IS STABLE.
== END 2022-03-07 18:50 | disposition home or self-care (01) | DRG 282 ==
LOC: MED 13:28 → MMU 17:49 → MTU 03-03 02:48
PROVIDERS: ADMIT Hospitalist; ATTEND Hospitalist
DX: K85.20 Alcohol induced acute pancreatitis without necrosis or infection (principal); E43 Unspecified severe protein-calorie malnutrition; E83.42 Hypomagnesemia; E87.6 Hypokalemia; I10 Essential (primary) hypertension; F10.10 Alcohol abuse, uncomplicated; Y90.9 Presence of alcohol in blood, level not specified; Z20.822 Contact with and (suspected) exposure to COVID-19; Z68.1 Body mass index [BMI] 19.9 or less, adult
CPT/HCPCS: 36415; 71045; 80053; 83690; 83735; 84484; 85025; 87081; 93005; 96372; 96374; 99285; J1644; J1885; J2270; J2405; J3475

== ENCOUNTER 2024-04-27 15:47 | Emergency (ER) | payer OTHER ==
[~2024-04-27] VITALS: Ht 165.1 cm; Wt 48.5 kg
[~2024-04-27 15:47] MED LIST: ACET-9525 PO; CALC500C17 PO; DOCU-299 PO; MAGN400T61 PO; ONDA-188 SL; PANT40EC PO
[2024-04-27 16:06] VITALS: BP 112/80; PULSE 94; RESP 16; TEMP 97.1; O2SAT 99
--- NOTE | 2024-04-27 16:14 | NUR ---
PT AMB TO BED 4
[2024-04-27 16:30] VITALS: O2SAT 99
--- NOTE | 2024-04-27 16:30 | NUR ---
44 Y/O F WITH NO PREVIOUS MEDICAL HX PATIENT PRESENTS TO ED WITH ABD PAIN AND PALPATATIONS X 3 DAYS. PT STATES IT FEELS LIKE HER HEART IS RACING. PT STATES SHE HAS HAD SOME NAUSEA PT DENIES N/V/D; SKIN IS PINK/WARM/DRY; AAOX4 WITH EVEN AND STEADY GAIT; LUNGS CLEAR BL; HR EVEN AND REGULAR; PT DENIES ANY FEVER, CP, SOB, OR COUGH AT THIS TIME; PATIENT STATES PAIN OF 8/10 AT THIS TIME; VSS; PATIENT POSITIONED FOR COMFORT;CALL LIGHT WITH IN REACH; HOB ELEVATED; BEDRAILS UP X2; BED DOWN. ER MD MADE AWARE OF PT STATUS. PMHX DENIES ALLERGIES NKA
--- NOTE | 2024-04-27 16:45 | NUR ---
PT HAS BEEN MEDICATED PER PROVIDERS ORDERS.
[2024-04-27] MEDS: ONDANSETRON 4 MG ODT PO ONE (16:48)
[2024-04-27 16:59] LABS: BASOPHILS % (AUTO) 0.5 % (0.0-2.0); EOSINOPHILS # (AUTO) 0.1 K/uL (0-0.4); EOSINOPHILS % (AUTO) 2.1 % (0.0-4.0); HEMATOCRIT 35.4 % (36-48); HEMOGLOBIN 12.2 g/dL (12.0-16.0); LYMPHOCYTES # (AUTO) 2.2 K/uL (2.5-16.5); LYMPHOCYTES % (AUTO) 31.6 % (20.5-51.1); MEAN CORPUSCULAR HEMOGLOBIN 37 pg (27-31); MEAN CORPUSCULAR HGB CONC 35 g/dL (33-37); MEAN CORPUSCULAR VOLUME 106.2 fL (80-94); MONOCYTES # (AUTO) 0.8 K/uL (0.8-1.0); MONOCYTES % (AUTO) 11.4 % (1.7-9.3); NEUTROPHILS # (AUTO) 3.8 K/uL (1.8-7.7); NEUTROPHILS % (AUTO) 54.4 % (42.2-75.2); PLATELET COUNT (AUTO) 219 K/uL (140-450); RED BLOOD CELL COUNT(AUTO) 3.33 MIL/uL (4.20-5.40); RED CELL DISTRIBUTION WIDTH 14.5 % (11.6-13.7)
[2024-04-27 17:32] LABS: ALBUMIN 2.6 g/dL (3.4-5.0); ANION GAP 13.7 (8-16); THYROID STIMULATING HORMONE 3.93 uIU/mL (0.34-3.74); TOTAL BILIRUBIN 0.5 mg/dL (0.0-1.0); TOTAL PROTEIN, SERUM 6.6 g/dL (6.4-8.2)
[2024-04-27 17:37] LABS: POTASSIUM 2.7 mmol/L (3.5-5.1)
[2024-04-27] MEDS ORDERED: POTASSIUM CHL 40 MEQ/ D5-1/2NS 0 ML IV ONE (17:42)
[2024-04-27] MEDS ORDERED: POTASSIUM CHLORIDE 10 MEQ TABER PO ONE (17:42)
[2024-04-27 17:44] LABS: BILIRUBIN,URINE 1+ (NEGATIVE); BLOOD, URINE 3+ (NEGATIVE); COLOR,URINE YELLOW (YELLOW); LEUKOCYTE ESTERASE ,URINE TRACE (NEGATIVE); NITRITE, URINE NEGATIVE (NEGATIVE); PROTEIN,URINE TRACE (NEGATIVE); UGLUCOSE NEGATIVE (NEGATIVE); UROBILINOGEN,URINE 0.2 EU/dL (0.2 - 1)
[2024-04-27] MEDS: POTASSIUM CHLORIDE 10 MEQ TABER PO ONE (17:47)
--- NOTE | 2024-04-27 17:47 | NUR ---
PT HAS BEEN MEDICATED PER PROVIDERS ORDERS.
[2024-04-27 17:50] LABS: APPEARANCE,URINE HAZY (CLEAR)
[2024-04-27 17:52] LABS: AMPHETAMINE, URINE NEGATIVE ng/ml (NEG <=1000); BARBITURATE, URINE NEGATIVE ng/ml (NEG <=200); BENZODIAZEPINE, URINE NEGATIVE ng/mL (NEG <=200); COCAINE, URINE NEGATIVE ng/mL (NEG <=300)
[2024-04-27 17:53] LABS: CANNABINOID, URINE POSITIVE ng/mL (NEG <=50); OPIATE, URINE NEGATIVE ng/mL (NEG <=2000); PHENCYCLIDINE SCREEN,URINE NEGATIVE ng/mL (NEG <=25)
[2024-04-27 17:55] LABS: ICTOTEST POSITIVE (NEGATIVE)
[2024-04-27 17:56] LABS: BACTERIA,URINE 1+ /HPF (None Seen); MUCUS,URINE None Seen /LPF (None Seen); RBC,URINE 11-20 (MOD) /HPF (0-5); SQUAMOUS EPITHELIAL CELL,UR 4-10 (MOD) /LPF (0-3 (FEW)); WBC,URINE 0-5 /HPF (0-5)
[2024-04-27] MEDS: KCL 20 MEQ IN 100 mL PREMIX 200 ML IV ONE (17:58)
[2024-04-27] MEDS: NACL 0.9% 1,000 ML IV ONE (18:16)
--- NOTE | 2024-04-27 18:16 | NUR ---
PT HAS BEEN MEDICATED PER PROVIDERS ORDERS.
--- NOTE | 2024-04-27 18:26 | NUR ---
PER MD PTS IV POTASSIUM D/C BECAUSE ITS BURNING. PTS LINE INTACT NO SIGNS OF INFILTRATION.
[2024-04-27] MEDS ORDERED: POTA10TA70 PO (18:39)
[2024-04-27 19:02] VITALS: BP 112/80; PULSE 94; RESP 16; TEMP 97.1; O2SAT 99
--- NOTE | 2024-04-27 19:04 | NUR ---
Patient discharged with v/s stable. Written and verbal after care instructions given and explained. Patient verbalized understanding. Ambulatory with steady gait. All questions addressed prior to discharge. Advised to follow up with PMD.
--- NOTE | 2024-04-27 19:09 | NUR ---
Chart checked and completed. The patient's care was reviewed and supervised by GAGAN FABIAN RN.
== END 2024-04-27 19:04 | disposition home or self-care (01) ==
LOC: MED 15:47
DX: R10.33 Periumbilical pain (principal); R00.2 Palpitations; R11.0 Nausea; Z79.1 Long term (current) use of non-steroidal anti-inflammatories (NSAID); Z79.899 Other long term (current) drug therapy
CPT/HCPCS: 36415; 74177; 80053; 80305; 81001; 81025; 83690; 84443; 85025; 93005; 96360; 96361; 99285; J3480; J7030; Q0162; Q9967